=== PATIENT | female | born 1960 | race Caucasian/White ===

== ENCOUNTER 2021-01-04 07:14 | Emergency (ER) | payer OTHER ==
[~2021-01-04] VITALS: Ht 165.1 cm; Wt 56.7 kg
--- NOTE | 2021-01-04 07:18 | NUR ---
[email or web address], medical screening exam in progress
[2021-01-04] MEDS ORDERED: ACETAMINOPHEN 325 MG TABLET PO ONE (07:30)
[2021-01-04] MEDS ORDERED: ACETAMINOPHEN 325 MG TABLET ONE (07:38)
[2021-01-04] MEDS ORDERED: ACET-2154 PO (08:23)
--- NOTE | 2021-01-04 08:32 | NUR ---
Patient discharged to home in stable condition with brisk steady. Written and verbal after care instructions given to patient and family. Patient & family verbalized understanding and compliance of instructions. Stressed follow up with primary doctor and plastic surgeon or return to ER for worsening s/s.
== END 2021-01-04 08:33 | disposition home or self-care (01) ==
LOC: ER 07:14
DX: S01.81XA Laceration without foreign body of other part of head, initial encounter (principal); W18.2XXA Fall in (into) shower or empty bathtub, initial encounter; Y93.E1 Activity, personal bathing and showering; Y92.012 Bathroom of single-family (private) house as the place of occurrence of the external cause; Y99.8 Other external cause status; E78.00 Pure hypercholesterolemia, unspecified; R03.0 Elevated blood-pressure reading, without diagnosis of hypertension; F32.9 Major depressive disorder, single episode, unspecified
CPT/HCPCS: 70450; A4217; A4663